=== PATIENT | male | born 1950 | race Caucasian/White ===

== ENCOUNTER 2017-02-18 13:35 | Emergency (ER) | payer MEDICARE ==
[2017-02-18 13:49] VITALS: BP 125/75
--- NOTE | 2017-02-18 14:01 | UC ---
Progress - Progress Note Progress Note: right hand pain and swelling after fall yesterday--has abrasion on face and right forearm---last tetnus 10 years ago---refuses update today, refuses pain med
--- NOTE | 2017-02-18 14:15 | UC ---
UC General HPI - History of Current Complaint Chief Complaint: UCUpperExtremity Stated Complaint: HAND INJURY Time Seen by Provider: 02/18/17 14:06 - Allergy/Home Medications Allergies/Adverse Reactions: Allergies Allergy/AdvReac Type Severity Reaction Status Date / Time No Known Allergies Allergy Verified 04/15/16 12:04 Home Medications: Home Medications Ibuprofen [Advil] 800 mg PO 02/18/17 [History] PMH/Surg Hx/FS Hx/Imm Hx - Surgical History Surgical History: Yes Surgery Procedure, Year, and Place: LEFT [facility]CHIPEXY, [facility] - Social History Alcohol Use: Weekly Alcohol Amount: 1-2/week Substance Use Type: None Smoking Status (MU): Former Smoker Type: Cigarettes Have You Smoked in the Last Year: No When Did the Patient Quit Smoking/Using Tobacco: AGE 26 - Immunization History Most Recent Influenza Vaccination: Never Most Recent Tetanus Shot: Unknown Most Recent Pneumonia Vaccination: Never Physical Exam Vital Signs: Initial Vital Signs Temp 97.9 F 02/18/17 13:46 Pulse 45 02/18/17 13:46 Resp 18 02/18/17 13:46 BP 125/75 02/18/17 13:46 Pulse Ox 98 02/18/17 13:46
--- NOTE | 2017-02-18 14:33 | RAD ---
INDICATION: Soft tissue injury to the right hand after a fall 2 days earlier. COMPARISON: None. TECHNIQUE: 3 views of the right hand were obtained. FINDINGS: There is a minimally displaced fracture involving the proximal pole of the right fifth metacarpal with slight displacement of the proximal fracture fragment anterior and radial relative to the distal shaft of the bone. The remaining visualized bones are intact and appropriately aligned. IMPRESSION: Minimally displaced fracture involving the base of the right fifth metacarpal.
--- NOTE | 2017-02-18 17:58 | UC ---
Gutierrez Lebron Aidan, scribed for Selam Holloway DO on 02/18/17 at 1515 . Hand/Wrist HPI - HPI Summary HPI Summary: 67 y/o male presents to the Urgent Care with a complaint of acute, constant, [id number], right hand swelling that resulted from him falling onto his right hand, arm, shoulder, and head 3 days ago. Associated symptoms include a superficial abrasion to the right forearm and mild (2/10) right hand pain. He took arnica, which slightly alleviated his symptoms. Pt denies any LOC, GOMEZ, dizziness, nausea, vomiting, abnormal confusion, problems with coordination, vision changes, ringing in the ears, fatigue, mood changes, sore throat, fever, chills, CP, or SOB. - History Of Current Complaint Chief Complaint: UCUpperExtremity Stated Complaint: HAND INJURY Time Seen by Provider: 02/18/17 14:06 Hx Obtained From: Patient ?: No Onset/Duration: Sudden Onset, Lasting Days, Still Present Severity Initially: Moderate - hand swelling Severity Currently: Moderate - hand swelling, pain is mild Pain Intensity: 2 Pain Scale Used: 0-10 Numeric Character Of Pain: Throbbing - mild Aggravating Factor(s): Other - unknown Alleviating: Other - arnica Associated Signs And Symptoms: Positive: Swelling, Other - superficial abrasion to the right forearm and mild (2/10) right hand pain Related History: Dominant Hand Right - Allergies/Home Medications Allergies/Adverse Reactions: Allergies Allergy/AdvReac Type Severity Reaction Status Date / Time No Known Allergies Allergy Verified 04/15/16 12:04 Home Medications: Home Medications Ibuprofen [Advil] 800 mg PO 02/18/17 [History] PMH/Surg Hx/FS Hx/Imm Hx Previously Healthy: Yes - Surgical History Surgical History: Yes Surgery Procedure, Year, and Place: LEFT [facility]CHIPEXY, [facility] - Family History Known Family History: Positive: Other - CVA Negative: Hypertension - Social History Occupation: Retired Lives: With Family Alcohol Use: Weekly Alcohol Amount: 1-2/week Substance Use Type: None Smoking Status (MU): Former Smoker Type: Cigarettes Have You Smoked in the Last Year: No When Did the Patient Quit Smoking/Using Tobacco: AGE 26 - Immunization History Most Recent Influenza Vaccination: Never Most Recent Tetanus Shot: Unknown Most Recent Pneumonia Vaccination: Never Review of Systems Constitutional: Negative Skin: Other - superficial abrasion to the right forearm and rt cheak. bruise over medial palm Eyes: Negative ENT: Negative Respiratory: Negative Cardiovascular: Negative Gastrointestinal: Negative Genitourinary: Negative Motor: Negative Neurovascular: Negative Musculoskeletal: Arthralgia - right hand pain, Edema - right hand swelling Neurological: Negative Psychological: Negative All Other Systems Reviewed And Are Negative: Yes Physical Exam Triage Information Reviewed: Yes Appearance: Well-Appearing, No Pain Distress, Well-Nourished Vital Signs: Initial Vital Signs Temp 97.9 F 02/18/17 13:46 Pulse 45 02/18/17 13:46 Resp 18 02/18/17 13:46 BP 125/75 02/18/17 13:46 Pulse Ox 98 02/18/17 13:46 Vital Signs Reviewed: Yes Eyes: Positive: Conjunctiva Clear. Negative: Discharge ENT: Positive: Hearing grossly normal. Negative: Muffled/hoarse voice Neck exam: Normal Neck: Positive: Supple Respiratory: Positive: Lungs clear, Normal breath sounds, No respiratory distress, No accessory muscle use Cardiovascular: Positive: RRR, No Murmur Musculoskeletal Exam: Normal Musculoskeletal: Positive: Edema @ - swelling at the whole right hand, Other: - Swelling of the whole right hand with bruising on the palmar surface over the 5th metacarpal, tenderness to palpation is elicited at the base of the 5th metacarpal Neurological Exam: Normal Neurological: Positive: Alert, Muscle Tone Normal Psychological Exam: Normal Psychological: Positive: Age Appropriate Behavior Skin Exam: Other - minor abrasions on the right forearm and right cheek Diagnostics - Radiology HAND X-RAY Xray Interpretation: Positive (See Comments) - IMPRESSION: Minimally displaced fracture involving the base of the right fifth metacarpal. Radiology Interpretation Completed By: Radiologist Hand/Wrist Course/Dx - Course Course Of Treatment: 67 y/o male presents with right hand swelling S/P breaking a fall with his hand. X-ray indicated displaced fracture of the 5th metacarpal. - Differential Dx/Diagnosis Differential Diagnosis/HQI/PQRI: Contusion, Dislocation, Fracture, Sprain Provider Diagnoses: 5th metacarpal fx, head injury Discharge - Discharge Plan Condition: Stable Disposition: AGAINST MEDICAL ADVICE Patient Education Materials: Head Injury (ED), Splint Care (ED), Boxer Fracture (ED) Referrals: Maria Guadalupe Moreno MD [Primary Care Provider] - If Needed Ross Chandler MD [Medical Doctor] - (follow up in 2-4 days or as per ortho) Additional Instructions: EVEN THOUGH YOU HAVE NO SYMPTOMS AND YOUR NUERO EXAM IN PERFECT, YOU HIT YOUR HEAD IN YOUR FALL. SO, WE ARE RECOMMENDING THAT YOU GET A CT SCAN OF YOUR HEAD TO RULE OUT A SLOW BLEED. PLEASE GO THE ED FOR THE SCAN DIRECTLY. HAVE A GREAT DAY. The documentation as recorded by the Gutierrez correa Aidan accurately reflects the service I personally performed and the decisions made by me, Selam Holloway DO.
== END 2017-02-18 15:51 | disposition left against medical advice (07) ==
LOC: UCEAST 13:35
DX: S62.306A Unspecified fracture of fifth metacarpal bone, right hand, initial encounter for closed fracture (principal); S09.90XA Unspecified injury of head, initial encounter; W19.XXXA Unspecified fall, initial encounter
CPT/HCPCS: 99212; G0463

== ENCOUNTER 2017-02-18 16:01 | Emergency (ER) | payer MEDICARE ==
[2017-02-18 16:10] VITALS: BP 172/92
--- NOTE | 2017-02-18 17:24 | RAD ---
INDICATION: Head injury 2 days earlier. COMPARISON: None. TECHNIQUE: Contiguous axial sections of the brain were obtained from the skull base to the vertex without contrast. FINDINGS: The ventricles, cisterns and sulci are within normal limits. The rodriguez-white matter differentiation is adequately maintained and there is no sulcal effacement. No significant focal abnormality or mass effect is present. There is no evidence for intracranial hemorrhage. No significant focal osseous abnormality is present. The visualized portion of the paranasal sinuses and mastoid air cells appear clear. IMPRESSION: Normal CT of the brain.
--- NOTE | 2017-02-18 22:40 | ED ---
Chicho Lebron Thomas, scribed for Waldemar Crow MD on 02/18/17 at 1645 . Complex/Multi-Sys Presentation - HPI Summary HPI Summary: Pt is a 67 y/o M who presents to ED referred from [facility] for a head CT s/p fall. Pt reports that he fell on (2 days ago) and that he broke the fall with his R hand, striking his R frontal scalp. States that he has never hit his head so hard in his life. Reports he went to [facility] for evaluation of the hand injury today, but upon evaluation they referred him to [facility] ED to receive a CT of the head based upon his age. Denies syncope, LOC, R hand pain. Patient reports he is asymptomatic. - History Of Current Complaint Chief Complaint: EDGeneral Time Seen by Provider: 02/18/17 16:15 Hx Obtained From: Patient Onset/Duration: Resolved Severity Currently: None Severity Initially: Mild Aggravating Factor(s): None Alleviating Factor(s): None Associated Signs And Symptoms: Positive: Other - NEG: LOC, R hand pain. Negative: Syncope - Allergies/Home Medications Allergies/Adverse Reactions: Allergies Allergy/AdvReac Type Severity Reaction Status Date / Time No Known Allergies Allergy Verified 04/15/16 12:04 PMH/Surg Hx/FS Hx/Imm Hx Cardiovascular History: Denies: Hx Hypertension - NO MEDS, SITUATIONAL Sensory History: Reports: Hx Contacts or Glasses - READING GLASSES, Hx Hearing Problem Denies: Hx Hearing Aid Opthamlomology History: Reports: Hx Contacts or Glasses - READING GLASSES Psychiatric History: Reports: Hx Anxiety - SITUATIONAL, Hx Depression - SITUATIONAL - Surgical History Surgery Procedure, Year, and Place: LEFT [place]CHIPEXY, [facility] Hx Anesthesia Reactions: No Infectious Disease History: No Infectious Disease History: Denies: Traveled Outside the [place] in Last 30 Days - Family History Known Family History: Positive: Other - CVA Negative: Hypertension - Social History Alcohol Use: Weekly Alcohol Amount: 1-2/week Substance Use Type: Reports: None Hx Tobacco Use: Yes Smoking Status (MU): Former Smoker Type: Cigarettes Have You Smoked in the Last Year: No Review of Systems Negative: Fever, Chills Negative: Erythema Negative: Sore Throat Negative: Chest Pain Negative: Shortness Of Breath, Cough Negative: Abdominal Pain, Vomiting, Nausea Negative: dysuria, hematuria Positive: Other - NEG: R hand pain. Negative: Myalgia, Edema Negative: Rash Neurological: Other - Negative dizziness and LOC Negative: Syncope All Other Systems Reviewed And Are Negative: Yes Physical Exam - Summary Physical Exam Summary: Constitutional: Well-developed, Well-nourished, Alert. (-) Distressed Skin: Warm, Dry HENT: Normocephalic; Abrasion on head. Eyes: Conjunctiva normal Neck: Musculoskeletal ROM normal neck. (-) JVD, (-) Stridor, (-) Tracheal deviation Cardio: Rhythm regular, rate normal, Heart sounds normal; Intact distal pulses; The pedal pulses are 2+ and symmetric. Radial pulses are 2+ and symmetric. (-) Murmur Pulmonary/Chest wall: Effort normal. (-) Respiratory distress, (-) Wheezes, (-) Rales Abd: Soft, (-) Tenderness, (-) Distension, (-) Guarding, (-) Rebound Musculoskeletal: R arm fracture that is splinted. (-) Edema Lymph: (-) Cervical adenopathy Neuro: Alert, Oriented x3 Psych: Mood and affect Normal Triage Information Reviewed: Yes Vital Signs On Initial Exam: Initial Vitals Temp 97.0 F 02/18/17 16:05 Vital Signs Reviewed: Yes - [place] Coma Scale Coma Scale Total: 15 Diagnostics - Vital Signs Vital Signs Temp Pulse Resp BP Pulse Ox 02/18/17 16:08 97.8 F 51 20 172/92 99 02/18/17 16:05 97.0 F - Laboratory Lab Statement: Any lab studies that have been ordered have been reviewed, and results considered in the medical decision making process. - CT CT Brain CT Interpretation: No Acute Changes - Normal CT of the brain CT Interpretation Completed By: Radiologist Re-Evaluation - Re-Evaluation First Eval Re-Evaluation Time: 17:50 Change: Unchanged Comment: Discussed CT results with patient. Discussed [facility] visit and collected additional history. Discussed discharge plan with patient. Complex Multi-Symp Course/Dx Assessment/Plan: Pt is a 67 y/o M who presents to ED for a brain CT, referred from [facility]. He fell 2 days ago, breaking the fall with his R hand and hitting his R frontal scalp. Denies LOC, syncope and R hand pain at this time. He is asymptomatic with no complaints. Brain CT reveals no acute findings. Pt will be D/C with Dx of closed head injury, abrasion of cheek and hand fracture with a follow up with orthopedics. He understands and agrees. - Diagnoses Provider Diagnoses: Closed head injury, Abrasion of cheek, Hand fracture Discharge - Discharge Plan Condition: Stable Disposition: HOME Patient Education Materials: Hand Fracture (ED), Abrasion (ED) Referrals: Ross Chandler MD [Medical Doctor] - 3 Days The documentation as recorded by the Chicho correa Thomas accurately reflects the service I personally performed and the decisions made by , Waldemar Crow MD.
== END 2017-02-18 18:07 | disposition home or self-care (01) ==
LOC: ED 16:01
DX: S09.90XA Unspecified injury of head, initial encounter (principal); S62.91XA Unspecified fracture of right hand, initial encounter for closed fracture; S00.81XA Abrasion of other part of head, initial encounter; M79.641 Pain in right hand; W19.XXXA Unspecified fall, initial encounter; Y93.9 Activity, unspecified; Y92.9 Unspecified place or not applicable; Y99.9 Unspecified external cause status; Z87.891 Personal history of nicotine dependence
CPT/HCPCS: 70450; 99282

== ENCOUNTER 2017-06-10 22:17 | Observation (INO) | payer MEDICARE ==
[2017-06-10] MEDS ORDERED: NS 0.9% 1000 ML* 1,000 ML IV ONE (23:03)
[2017-06-10] MEDS ORDERED: Tetan/Diph/Pertus SYR(Tdap)* 0.5 ML SYR(BOOSTRIX) use SYR IM ONE (23:03)
[2017-06-10 23:28] LABS: Hematocrit 39 % (42-52); Hemoglobin 13.3 g/dl (14.0-18.0); Mean Corpuscular HGB Conc 34 g/dl (31-36); Mean Corpuscular Hemoglobin 32 pg (27-31); Mean Corpuscular Volume 95 fL (80-94); Mean Platelet Volume 8 um3 (7.4-10.4); Red Blood Count 4.15 10^6/ul (4.0-5.4); Red Cell Distribution Width 14 % (10.5-15); White Blood Count 16.3 10^3/ul (3.5-10.8)
[2017-06-10 23:46] LABS: Albumin 4.4 g/dL (3.2-5.2); BUN/Creatinine Ratio 23.8 (8-20); Calcium 9.3 mg/dL (8.6-10.3); EGFR African American 76.4 (>60); EGFR Non-African American 59.4 (>60); Globulin 3.2 g/dL (2-4); Potassium 3.9 mmol/L (3.5-5.0); Total Bilirubin 0.5 mg/dL (0.2-1.0); Total Protein 7.6 g/dL (6.4-8.9)
[2017-06-10 23:47] LABS: Troponin I 0.01 ng/mL (<0.04)
[2017-06-11] MEDS ORDERED: Iohexol 300* (CONTRAST) 10 ML SDV IV ONE (00:15)
[2017-06-11] MEDS ORDERED: Morphine INJ* 4 MG/ML 1 ML CARPUJECT IV ONE (00:29)
[2017-06-11] MEDS ORDERED: Ondansetron INJ* 2 MG/ML VIAL IV ONE (00:29)
[2017-06-11] MEDS ORDERED: HYDROmorphone INJ* 2 MG/ML CARPUJECT SYRINGE IV PRN (03:42)
[2017-06-11] MEDS ORDERED: Ondansetron INJ* 2 MG/ML VIAL IV PRN (03:42)
[2017-06-11] MEDS ORDERED: Ibuprofen TAB* 600 MG PO PRN (03:42)
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
[2017-06-11] MEDS: oxyCODONE/Acetamin 5/325 MG* TAB PO PRN ×2 (06:36→12:15)
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
[2017-06-11 07:25] VITALS: BP 126/74
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
[2017-06-11 10:00] LABS: Hematocrit 36 % (42-52); Hemoglobin 12.2 g/dl (14.0-18.0); Mean Corpuscular HGB Conc 34 g/dl (31-36); Mean Corpuscular Hemoglobin 32 pg (27-31); Mean Corpuscular Volume 94 fL (80-94); Mean Platelet Volume 8 um3 (7.4-10.4); Red Blood Count 3.86 10^6/ul (4.0-5.4); Red Cell Distribution Width 14 % (10.5-15); White Blood Count 9.2 10^3/ul (3.5-10.8)
[2017-06-11 10:09] LABS: BUN/Creatinine Ratio 27.1 (8-20); EGFR Non-African American 90.2 (>60); Potassium 4.1 mmol/L (3.5-5.0)
[2017-06-11 10:10] LABS: Calcium 8.7 mg/dL (8.6-10.3)
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
== END 2017-06-11 12:00 | disposition home or self-care (01) ==
LOC: ED 22:17 → SSU 06-11 03:42
PROVIDERS: ADMIT Surgery; ATTEND Surgery
DX: S27.0XXA Traumatic pneumothorax, initial encounter (principal); S22.31XA Fracture of one rib, right side, initial encounter for closed fracture; S27.321A Contusion of lung, unilateral, initial encounter; S40.811A Abrasion of right upper arm, initial encounter; S40.812A Abrasion of left upper arm, initial encounter; V28.4XXA Motorcycle driver injured in noncollision transport accident in traffic accident, initial encounter; Y92.410 Unspecified street and highway as the place of occurrence of the external cause; D72.829 Elevated white blood cell count, unspecified; R94.4 Abnormal results of kidney function studies; M54.2 Cervicalgia; R10.9 Unspecified abdominal pain; R00.1 Bradycardia, unspecified; Z23 Encounter for immunization
CPT/HCPCS: 36415; 70450; 71020; 71260; 72125; 74177; 80048; 80053; 80320; 83690; 84484; 85025; 85610; 90471; 90715; 93005; 96361; 96374; 96375; 99291; A9270-GY; G0378; G0480; J2270; J2405; Q9967

== ENCOUNTER 2017-07-15 19:22 | Emergency (ER) | payer MEDICARE ==
[2017-07-15 19:46] VITALS: BP 112/73
--- NOTE | 2017-07-15 19:51 | UC ---
Skin Complaint HPI - HPI Summary HPI Summary: Tick Bite left hip removed about 2 hours ago--unsure duration of attachment - History of Current Complaint Chief Complaint: UCSkin Time Seen by Provider: 07/15/17 19:50 Stated Complaint: TICK BITE Hx Obtained From: Patient Onset/Duration: Sudden Onset Timing: Constant Pain Intensity: 0 Location: Discrete Aggravating Factor(s): Nothing Alleviating Factor(s): Nothing Associated Signs & Symptoms: Positive: Negative Related History: Possible Reaction to: Insect - Allergy/Home Medications Allergies/Adverse Reactions: Allergies Allergy/AdvReac Type Severity Reaction Status Date / Time No Known Allergies Allergy Verified 07/15/17 19:45 Home Medications: Home Medications Arginine [l-Arginine] 07/15/17 [History] Ibuprofen TAB* [Advil TAB*] PRN 07/15/17 [History] Testosterone Booster* 07/15/17 [History] Turmeric (Curcuma Longa) (Bulk [Turmeric] 1 pow XX 07/15/17 [History] Review of Systems Constitutional: Negative Skin: Negative, Other - small area of irratated skin at TICK site Eyes: Negative ENT: Negative Respiratory: Negative Cardiovascular: Negative Gastrointestinal: Negative Genitourinary: Negative Motor: Negative Neurovascular: Negative Musculoskeletal: Negative Neurological: Negative Psychological: Negative Is Patient Immunocompromised?: No All Other Systems Reviewed And Are Negative: Yes PMH/Surg Hx/FS Hx/Imm Hx Previously Healthy: Yes - Surgical History Surgical History: Yes Surgery Procedure, Year, and Place: HERNIA REPAIR, COLONOSCOPY - Family History Known Family History: Positive: Other - CVA Negative: Hypertension - Social History Occupation: Retired Lives: With Family Alcohol Use: Weekly Alcohol Amount: 6 GLASSES/WEEK Substance Use Type: None Smoking Status (MU): Former Smoker Type: Cigarettes Have You Smoked in the Last Year: No When Did the Patient Quit Smoking/Using Tobacco: AGE 26 - Immunization History Most Recent Influenza Vaccination: Never Most Recent Tetanus Shot: Unknown Most Recent Pneumonia Vaccination: Never Physical Exam Triage Information Reviewed: Yes Appearance: Well-Appearing, No Pain Distress, Well-Nourished Vital Signs: Initial Vital Signs Temp 97.9 F 07/15/17 19:41 Pulse 58 07/15/17 19:41 Resp 16 07/15/17 19:41 BP 112/73 07/15/17 19:41 Pulse Ox 96 07/15/17 19:41 Vital Signs Reviewed: Yes Eye Exam: Normal Eyes: Positive: Conjunctiva Clear ENT Exam: Normal ENT: Positive: Normal ENT inspection, Hearing grossly normal, Pharynx normal. Negative: TMs normal, Tonsillar swelling, Tonsillar exudate, Trismus Dental Exam: Normal Neck exam: Normal Neck: Positive: Supple, Nontender Respiratory Exam: Normal Respiratory: Positive: Chest non-tender, No respiratory distress, No accessory muscle use Cardiovascular Exam: Normal Cardiovascular: Positive: RRR, Pulses Normal, Brisk Capillary Refill Musculoskeletal Exam: Normal Musculoskeletal: Positive: Strength Intact, ROM Intact Neurological Exam: Normal Neurological: Positive: Alert, Muscle Tone Normal Psychological Exam: Normal Skin Exam: Normal Course/Dx - Course Course Of Treatment: Doxy times one soap and water wash observe for s/s of LYME follow with PCP - Diagnoses Provider Diagnoses: Tick expose with Lyme PEP Discharge - Discharge Plan Condition: Stable Disposition: HOME Patient Education Materials: Tick Bite (ED) Referrals: Maria Guadalupe Moreno MD [Primary Care Provider] - If Needed
[2017-07-15] MEDS ORDERED: DOXYcycline CAP(*) 100 MG PO ONE (19:58)
== END 2017-07-15 20:05 | disposition home or self-care (01) ==
LOC: UCEAST 19:22
DX: S70.262A Insect bite (nonvenomous), left hip, initial encounter (principal); W57.XXXA Bitten or stung by nonvenomous insect and other nonvenomous arthropods, initial encounter; Y93.9 Activity, unspecified; Y92.9 Unspecified place or not applicable; Z87.891 Personal history of nicotine dependence
CPT/HCPCS: 99212; A9270-GY; G0463

== ENCOUNTER 2018-12-13 20:22 | Emergency (ER) | payer MEDICARE ==
[2018-12-13 20:50] VITALS: BP 125/75
[2018-12-13] MEDS ORDERED: DOXYcycline CAP(*) 100 MG PO ONE ×2 (21:46→22:16)
--- NOTE | 2018-12-13 21:46 | UC ---
Skin Complaint HPI - HPI Summary HPI Summary: 68 y/o male presents to the urgent care c/o tick bite in his left thigh for the past 2 days. pt reports he doesn't know how long the tick was attached since he was hiking for the past 2 days. Tick was engorged when he removed it today. Pain is mild 2/10. Pt w/ Hx of tick bite and has gotten prophylactic treatment in the past. Pt denies fever, GOMEZ, joint pains, abdominal pain, N/V/D. - History of Current Complaint Chief Complaint: UCSkin Time Seen by Provider: 12/13/18 21:45 Stated Complaint: TICK BITE Hx Obtained From: Patient Onset/Duration: Sudden Onset, Lasting Days - 2 days, Resolved - tick removal Skin Exposure Onset/Duration: Days Ago - 2 days Timing: Constant Onset Severity: Mild Current Severity: Mild Pain Intensity: 2 - at touch Pain Scale Used: 0-10 Numeric Location: Discrete - left thigh w/ tick bite Character: Pain, Redness Aggravating Factor(s): Touch Alleviating Factor(s): Other - tick removal Associated Signs & Symptoms: Positive: Rash - tick bite, Tenderness - mild. Negative: Fever, Chills, Drainage Related History: Possible Reaction to: Insect - Allergy/Home Medications Allergies/Adverse Reactions: Allergies Allergy/AdvReac Type Severity Reaction Status Date / Time No Known Allergies Allergy Verified 12/13/18 20:50 Home Medications: Home Medications Jet Fuel (Fat Burner)* 12/13/18 [History] PMH/Surg Hx/FS Hx/Imm Hx Previously Healthy: Yes - Pt denies PMHX - Surgical History Surgical History: Yes Surgery Procedure, Year, and Place: HERNIA REPAIR, COLONOSCOPY - Family History Known Family History: Positive: Other - CVA Negative: Hypertension Family History: Stroke - Social History Occupation: Retired Lives: With Family Alcohol Use: Daily Alcohol Amount: 2 DRINKS/NIGHT Substance Use Type: None Smoking Status (MU): Former Smoker Type: Cigarettes Have You Smoked in the Last Year: No When Did the Patient Quit Smoking/Using Tobacco: AGE 26 - Immunization History Most Recent Influenza Vaccination: Never Most Recent Tetanus Shot: Unknown Most Recent Pneumonia Vaccination: Never Review of Systems All Other Systems Reviewed And Are Negative: Yes Constitutional: Positive: Negative Skin: Positive: Other - tick bite on left thigh Eyes: Positive: Negative ENT: Positive: Negative Respiratory: Positive: Negative Cardiovascular: Positive: Negative Gastrointestinal: Positive: Negative Genitourinary: Positive: Negative Motor: Positive: Negative Neurovascular: Positive: Negative Musculoskeletal: Positive: Negative Neurological: Positive: Negative Psychological: Positive: Negative Is Patient Immunocompromised?: No Physical Exam - Summary Physical Exam Summary: Vital Signs Reviewed: Yes General: well developed, well nourished male sitting in the examining table w/o any apparent distress. Eyes: Positive: Conjunctiva Clear - PERRLA, EOMI ENT: Positive: Normal ENT inspection, Hearing grossly normal, Pharynx normal, TMs normal Neck: Positive: Supple, Nontender, No Lymphadenopathy Respiratory: Positive: Chest nontender, Lungs clear, Normal breath sounds Cardiovascular: Positive: RRR, No Murmur, Pulses Normal Abdomen Description: Positive: Nontender, No Organomegaly, Soft. Negative: CVA Tenderness (R), CVA Tenderness (L) Bowel Sounds: Positive: Present Musculoskeletal: Positive: Strength Intact, ROM Intact, No Edema Neurological Exam: Normal Psychological Exam: Normal Skin: Positive: rashes - Proximal medial aspect of Left thigh with tick bite with surrounding erythema, non tender to palpation. tick no longer present, no swelling or drainage observed. Triage Information Reviewed: Yes Vital Signs: Initial Vital Signs Temp 98.5 F 12/13/18 20:45 Pulse 52 12/13/18 20:45 Resp 16 12/13/18 20:45 BP 125/75 12/13/18 20:45 Pulse Ox 98 12/13/18 20:45 Course/Dx - Course Course Of Treatment: 68 y/o male presents to the urgent care c/o tick bite in his left thigh for the past 2 days. pt reports he doesn't know how long the tick was attached since he was hiking for the past 2 days. Tick was engorged when he removed it today. Pain is mild 2/10. Pt w/ Hx of tick bite and has gotten prophylactic treatment in the past. Pt denies fever, GOMEZ, joint pains, abdominal pain, N/V/D. Hx obtained. Pt w/ Proximal medial aspect of Left thigh with tick bite with surrounding erythema, non tender to palpation. tick no longer present, no swelling or drainage observed on examination. .area cleaned w/ alcohol swab. Antibiotic prophylaxis with Doxycycline given to the patient to prevent lyme Disease.. Pt tolerated well medication. Pt advised to observe the area for the development or Erythema Migrans for upto 30 days following exposure. Advised if he develops fever or erythema Migrans to return to the clinic or PCP for further treatment .Pt understood and agreed with plan of care. - Differential Diagnoses - Skin Complaint Differential Diagnoses: Abscess, Local Allergic Reaction, Tick Born Illness, Other - insect bite, bee sting - Diagnoses Provider Diagnosis: Tick bite of left thigh Discharge - Sign-Out/Discharge Documenting (check all that apply): Patient Departure - d/c home All imaging exams completed and their final reports reviewed: No Studies - Discharge Plan Condition: Stable Disposition: HOME Patient Education Materials: Tick Bite (ED) Referrals: Maria Guadalupe Moreno MD [Primary Care Provider] - 1 Week Brent MENDOZA,Raghav Tyler [Medical Doctor] - If Needed Additional Instructions: 1- Please observe the area for the development or Erythema Migrans for upto 30 days following exposure. Components of the tick saliva can cause transient erythema that should not be confused with Erythema Migrans. If you develop the bull's eye rash, fever, joint pains please return to the urgent care or f/u with your PCP for further management. Apply Bacitracin oint around tick bite to prevent infection 2-Antibiotic prophylaxis with Doxycycline was given to you today to prevent lyme Disease. Lyme serology can be drawn in 2 weeks with your PCP or Dr Oneal who specialized in lyme disease to r/o Lyme disease since there is probability of negative results at early exposure. - Billing Disposition and Condition Condition: STABLE Disposition: Home
== END 2018-12-13 22:20 | disposition home or self-care (01) ==
LOC: UCEAST 20:22
DX: S70.362A Insect bite (nonvenomous), left thigh, initial encounter (principal); R21 Rash and other nonspecific skin eruption; W57.XXXA Bitten or stung by nonvenomous insect and other nonvenomous arthropods, initial encounter; Y93.01 Activity, walking, marching and hiking; Y92.9 Unspecified place or not applicable; Z87.891 Personal history of nicotine dependence
CPT/HCPCS: 99212; A9270-GY; G0463

== ENCOUNTER 2019-01-09 07:01 | Emergency (ER) | payer MEDICARE ==
[2019-01-09 07:14] VITALS: BP 146/81
--- NOTE | 2019-01-09 07:37 | UC ---
Skin Complaint HPI - HPI Summary HPI Summary: PATIENT RUNS ROUTINELY. THINKS THE TICK ATTACHED TO HIM 2 DAYS AGO. REMOVED IT LAST NIGHT BUT THINKS THERE MAY BE SOME TICK PARTS REMAINING. THE AREA IS NOT TENDER OR DRAINING. - History of Current Complaint Chief Complaint: UCSkin Time Seen by Provider: 01/09/19 07:13 Stated Complaint: TICK BITE PERSONAL Hx Obtained From: Patient Onset/Duration: Lasting Days Timing: Constant Onset Severity: Mild Current Severity: Mild Pain Intensity: 0 Pain Scale Used: 0-10 Numeric Location: Discrete - left groin Character: Redness Aggravating Factor(s): Nothing Alleviating Factor(s): Nothing Associated Signs & Symptoms: Positive: Negative - Allergy/Home Medications Allergies/Adverse Reactions: Allergies Allergy/AdvReac Type Severity Reaction Status Date / Time No Known Allergies Allergy Verified 12/13/18 20:50 PMH/Surg Hx/FS Hx/Imm Hx Previously Healthy: Yes - Surgical History Surgical History: Yes Surgery Procedure, Year, and Place: HERNIA REPAIR, COLONOSCOPY - Family History Known Family History: Positive: Other - CVA Negative: Hypertension Family History: Stroke - Social History Alcohol Use: Daily Alcohol Amount: 2 DRINKS/NIGHT Substance Use Type: None Smoking Status (MU): Former Smoker Type: Cigarettes Have You Smoked in the Last Year: No When Did the Patient Quit Smoking/Using Tobacco: AGE 26 - Immunization History Most Recent Influenza Vaccination: Never Most Recent Tetanus Shot: Unknown Most Recent Pneumonia Vaccination: Never Review of Systems All Other Systems Reviewed And Are Negative: Yes Skin: Positive: Other - TICK ATTACHMENT SITE LEFT GROIN Respiratory: Positive: Negative Cardiovascular: Positive: Negative Gastrointestinal: Positive: Negative Musculoskeletal: Positive: Negative Neurological: Positive: Negative Physical Exam Triage Information Reviewed: Yes Appearance: Well-Appearing, No Pain Distress, Well-Nourished Vital Signs: Initial Vital Signs Temp 97.6 F 01/09/19 07:10 Pulse 92 01/09/19 07:10 Resp 16 01/09/19 07:10 BP 146/81 01/09/19 07:10 Pulse Ox 99 01/09/19 07:10 Vital Signs Reviewed: Yes Eyes: Positive: Conjunctiva Clear ENT: Positive: Hearing grossly normal Neck: Positive: Supple Respiratory: Positive: No respiratory distress, No accessory muscle use Cardiovascular: Positive: Pulses Normal Abdomen Description: Positive: Soft Musculoskeletal: Positive: No Edema Neurological: Positive: Alert Psychological: Positive: Age Appropriate Behavior Skin: Positive: Other - TICK ATTACHMENT SITE LEFT GROIN. PINPOINT SIZED RETAINED TICK PARTS. <1CM SURROUNDING ERYTHEMA. NON TENDER Course/Dx - Course Course Of Treatment: COUNSELED PT EXTENSIVELY ON LOW RISK OF MINNIE LYME DISEASE IF TICK NOT ENGORGED. NO INCREASED RISK OF DEVELOPING LYME WITH RETAINED TICK PARTS. NO INDICATION TO REMOVE THEM. 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 KEEP THE AREA CLEAN AND BE VIGILANT OF SX OVER THE NEXT 4-6 WEEKS. PROPHYLACTIC DOXY PROVIDED PT STATES TICK WAS ATTACHED FOR ABOUT 36 HOURS AND HE IS NOT SURE IF IT WAS ENGORGED. ALL QUESTIONS ANSWERED AND PT COMFORTABLE WITH PLAN OF CARE. - Diagnoses Provider Diagnosis: Tick bite of groin Discharge - Sign-Out/Discharge Documenting (check all that apply): Patient Departure All imaging exams completed and their final reports reviewed: No Studies - Discharge Plan Condition: Stable Disposition: HOME Prescriptions: Doxycycline Monohydrate 2 cap PO ONCE #2 cap Patient Education Materials: Tick Bite (ED) Referrals: Maria Guadalupe Moreno MD [Primary Care Provider] - If Needed Additional Instructions: TICK BITE PROPHYLAXIS You received a prescription for 200mg of doxycycline for prophylaxis against Lyme disease. The Infectious Disease Society of [place] (IDSA) does not generally recommend antimicrobial prophylaxis for prevention of Lyme disease after a recognized tick bite. However, in areas that are highly endemic for Lyme disease, a single dose of doxycycline may be offered to adult patients (200 mg) who are not and to children older than 8 years of age (4 mg/kg up to a maximum dose of 200 mg) when all of the following circumstances exist: CRITERIA FOR RECEIVING PROPHYLACTIC TREATMENT FOR LYME DISEASE 1) TICK ATTACHED FOR AT LEAST 36 HRS 2) TICK IS AN ADULT OR [place] DEER TICK 3) YOU LIVE IN AN AREA WHERE LYME DISEASE IS PREVALENT (i.e., [place], [place], [place], , [place] , [place], [place], [place], [place], [place], [place], [place], [place], [place]) 4) YOU HAVE NO CONTRAINDICATION TO THE MEDICATION (DOXYCYCLINE) 5) PROPHYLAXIS IS BEGUN WITHIN 72 HRS OF TICK REMOVAL YOUR CHANCES OF DEVELOPING LYME DISEASE FROM THIS TICK ARE SMALL. HOWEVER, 1 TICK MEANS THERE MAY HAVE BEEN OTHER TICKS OF WHICH YOU WEREN'T AWARE. SO BE VIGILANT OF YOUR SYMPTOMS AND DON'T HESITATE TO GET SEEN AGAIN IF YOU DEVELOP UNEXPLAINED FEVER, HEADACHE, JOINT PAIN, BODY ACHES, RASH OR ANY OTHER CONCERNING SYMPTOMS. Antibiotic treatment following a tick bite is not recommended as a means to prevent anaplasmosis, babesiosis, ehrlichiosis, or [place] spotted fever. There is no evidence this practice is effective, and it may simply delay onset of disease. Instead, persons who experience a tick bite should be alert for symptoms suggestive of tickborne illness and consult a physician if fever, rash, headache or other symptoms of concern develop. - Billing Disposition and Condition Condition: STABLE Disposition: Home
== END 2019-01-09 07:38 | disposition home or self-care (01) ==
LOC: UCEAST 07:01
DX: S30.861A Insect bite (nonvenomous) of abdominal wall, initial encounter (principal); W57.XXXA Bitten or stung by nonvenomous insect and other nonvenomous arthropods, initial encounter; Y92.89 Other specified places as the place of occurrence of the external cause; Z87.891 Personal history of nicotine dependence
CPT/HCPCS: 99212; G0463

== ENCOUNTER 2019-03-06 07:08 | Emergency (ER) | payer MEDICARE ==
[2019-03-06 07:20] VITALS: BP 134/77
[2019-03-06] MEDS ORDERED: Ibuprofen TAB* 400 MG PO ONE (07:29)
--- NOTE | 2019-03-06 07:36 | UC ---
Lower Extremity/Ankle HPI - HPI Summary HPI Summary: 69-year-old male comes in to clinic today with a chief complaint of right foot pain. Patient is a runner. He was running 2 days ago but he doesn't know of any specific injury. He started with pain in the right great toe and the right first MTP joint. Yesterday he worked all day and the pain got worse and the swelling got worse. Now due to the pain is having hard time walking on that foot. Ambulation makes the pain worse. Not ambulating decreases the pain. No history of gout. The swelling is throughout the great toe and includes the MTP. No fevers no chills no known skin break. No drainage. Rest the foot and ankle are nontender. - History of Current Complaint Chief Complaint: UCLowerExtremity Stated Complaint: TOE INJURY Time Seen by Provider: 03/06/19 07:24 Pain Intensity: 8 - Allergies/Home Medications Allergies/Adverse Reactions: Allergies Allergy/AdvReac Type Severity Reaction Status Date / Time No Known Allergies Allergy Verified 03/06/19 07:21 PMH/Surg Hx/FS Hx/Imm Hx Previously Healthy: Yes - Surgical History Surgical History: Yes Surgery Procedure, Year, and Place: HERNIA REPAIR, COLONOSCOPY - Family History Known Family History: Positive: Other - CVA Negative: Hypertension Family History: Stroke - Social History Alcohol Use: Daily Alcohol Amount: 2 DRINKS/NIGHT Substance Use Type: None Smoking Status (MU): Former Smoker Type: Cigarettes Have You Smoked in the Last Year: No When Did the Patient Quit Smoking/Using Tobacco: AGE 26 - Immunization History Most Recent Influenza Vaccination: Never Most Recent Tetanus Shot: Unknown Most Recent Pneumonia Vaccination: Never Review of Systems All Other Systems Reviewed And Are Negative: Yes Constitutional: Positive: Negative Skin: Positive: Other - SEE HPI Eyes: Positive: Negative ENT: Positive: Negative Respiratory: Positive: Negative Cardiovascular: Positive: Negative Gastrointestinal: Positive: Negative Motor: Positive: Negative Neurovascular: Positive: Negative Musculoskeletal: Positive: Other: - SEE HPI Neurological: Positive: Negative Psychological: Positive: Negative Is Patient Immunocompromised?: No Physical Exam Triage Information Reviewed: Yes Appearance: Well-Appearing, No Pain Distress, Well-Nourished Vital Signs: Initial Vital Signs Temp 98.6 F 03/06/19 07:16 Pulse 58 03/06/19 07:16 Resp 16 07/03/19 07:16 BP 134/77 03/06/19 07:16 Pulse Ox 96 03/06/19 07:16 Vital Signs Reviewed: Yes Eye Exam: Normal Eyes: Positive: Conjunctiva Clear Neck: Positive: Supple Respiratory: Positive: No respiratory distress Musculoskeletal: Positive: Other: - Patient's right great toe and first MTP or swollen and tender to palpation. Is also erythematous. It's warm to touch but not hot to touch. No obvious skin break. No drainage. The rest the foot is nontender to palpation. Ankle has full range of motion. Normal capillary refill. Neurological: Positive: Alert Psychological: Positive: Age Appropriate Behavior Skin: Positive: Other - Patient's right great toe and first MTP or swollen and tender to palpation. Is also erythematous. It's warm to touch but not hot to touch. No obvious skin break. No drainage. Normal capillary refill. Lower Extremity Course/Dx - Course Course Of Treatment: Patient Name: DOROTHEA CHOWDHURY Medical Record#: [id number] Ordering Physician: Cesar Mayen MD Acct.#: [id number] : 1950 Age: 69 Sex: M Location: [facility] Exam Date: 03/06/19727 ADM Status: REG ER Order Information: FOOT RIGHT 3+ VWS Accession Number: [id number] CPT: 42821 Indication: RIGHT foot swelling at the great toe and first metatarsal phalangeal joint. Running 4 days ago. Comparison: No relevant prior exams available on the [facility] PACS for comparison. Technique: AP, lateral, and oblique views RIGHT foot. REPORT AND IMPRESSION: #. Normal articular alignment. Negative for fracture or stress reaction. #. Small dorsal accessory ossicle at the level of the second metatarsal base. #. 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 No osseous erosions evident. Negative for soft tissue calcifications. #. Mild soft tissue swelling about the forefoot most prominent at the great toe. Negative for conspicuous foreign body or subcutaneous emphysema. R1F Preliminary Imaging Read R1F <Electronically signed by Colton Mora MD in OV> 03/06/19 0816 I discussed the x-ray report with the patient. No fracture seen there is mild arthritis in the first MTP. At this time were treating for a mechanical injury with a postop shoe and an anti-inflammatory and ice elevation and weightbearing as tolerated. Additionally treating with Keflex in case there is infection in the toe LESS likely. Uric acid is pending. It's not obvious that it is gout however using indomethacin as the nonsteroidal anti-inflammatory for pain. Patient's can be following up sports medicine and if he gets worse he is to get rechecked sooner. - Differential Dx/Diagnosis Provider Diagnosis: Pain of right great toe, Localized swelling of right foot Discharge - Sign-Out/Discharge Documenting (check all that apply): Patient Departure All imaging exams completed and their final reports reviewed: Yes - Discharge Plan Condition: Stable Disposition: HOME Prescriptions: Cephalexin CAP* [Keflex CAP*] 500 mg PO TID #21 cap Indomethacin 50 mg PO TID PRN #21 capsule PRN Reason: Pain Patient Education Materials: Cellulitis (ED), Gout (ED), Swollen Joint (ED) Referrals: Maria Guadalupe Moreno MD [Primary Care Provider] - [facility] [Provider Group] Additional Instructions: FOLLOW UP WITH SPORTS MEDICINE. TAKE THE INDOMETHACIN DIRECTED. INDOMETHACIN IS A NSAID; DO NOT TAKE ADDITIONAL NSAIDS WITH THE INDOMETHACIN. GET RECHECKED SOONER IF YOUR CONDITION WORSENS; PAIN, FEVER, YOU FEEL ILL OR ANY QUESTIONS OR CONCERNS. - Billing Disposition and Condition Condition: STABLE Disposition: Home
[2019-03-06 11:25] LABS: ABS Eosinophils 0.2 10^3/ul (0-0.6); ABS Lymphocytes 0.9 10^3/ul (1.0-4.8); ABS Monocytes 0.6 10^3/ul (0-0.8); Eosinophil % 2.3 %; Hematocrit 40 % (42-52); Hemoglobin 13.5 g/dL (14.0-18.0); Lymphocyte % 13.6 %; Mean Corpuscular HGB Conc 34 g/dL (31-36); Mean Corpuscular Hemoglobin 32 pg (27-31); Mean Corpuscular Volume 96 fL (80-94); Mean Platelet Volume 8.6 fL (7.4-10.4); Platelet Count 268 10^3/uL (150-450); Red Cell Distribution Width 13 % (10-15); White Blood Count 6.8 10^3/uL (3.5-10.8)
[2019-03-06 11:39] LABS: C Reactive Protein 22.28 mg/L (<8.01); Uric Acid 6.6 mg/dL (4.4-7.6)
--- NOTE | 2019-03-07 11:36 | UC ---
- Progress Note Progress Note: CRP elevated. Etiology unclear, infectious vs inflammatory. Notes from [facility] 03/06 reviewed. Call pcp tomorrow to review and arrange follow up, within the next week. Go to the ED if worse or new problems in the meantime. Course/Dx - Diagnoses Provider Diagnoses: Pain of right great toe, Localized swelling of right foot Discharge - Sign-Out/Discharge Documenting (check all that apply): Post-Discharge Follow Up All imaging exams completed and their final reports reviewed: Yes - Discharge Plan Condition: Stable Disposition: HOME Prescriptions: Cephalexin CAP* [Keflex CAP*] 500 mg PO TID #21 cap Indomethacin 50 mg PO TID PRN #21 capsule PRN Reason: Pain Patient Education Materials: Cellulitis (ED), Gout (ED), Swollen Joint (ED) Referrals: [facility] [Provider Group] Maria Guadalupe Moreno MD [Primary Care Provider] - Additional Instructions: FOLLOW UP WITH SPORTS MEDICINE. TAKE THE INDOMETHACIN DIRECTED. INDOMETHACIN IS A NSAID; DO NOT TAKE ADDITIONAL NSAIDS WITH THE INDOMETHACIN. GET RECHECKED SOONER IF YOUR CONDITION WORSENS; PAIN, FEVER, YOU FEEL ILL OR ANY QUESTIONS OR CONCERNS. - Billing Disposition and Condition Condition: STABLE Disposition: Home
== END 2019-03-06 08:34 | disposition home or self-care (01) ==
LOC: UCEAST 07:08
DX: M79.674 Pain in right toe(s) (principal); R22.41 Localized swelling, mass and lump, right lower limb; Z87.891 Personal history of nicotine dependence
CPT/HCPCS: 36415; 84550; 85025; 86140; 99213; A9270-GY; G0463

== ENCOUNTER 2019-04-03 20:42 | Emergency (ER) | payer MEDICARE ==
[2019-04-03 21:06] VITALS: BP 109/65
--- NOTE | 2019-04-03 22:44 | UC ---
Hand/Wrist HPI - HPI Summary HPI Summary: PATIENT WAS RUNNING ON THE TRAILS 4 DAYS AGO WHEN HE TRIPPED ON A TREE ROOT AND FELL. HE CAUGHT HIMSELF WITH HIS RIGHT ARM AND INJURED HIS RIGHT HAND AND SHOULDER. HE ALSO BUMPED HIS CHEEK AND HAS A VERY SMALL ABRASION. NO LOC. NO HEADACHE, NAUSEA OR VISUAL DISTURBANCES. PATIENT WALKED IN WITH NO DIFFICULTY. UP TO DATE TETANUS 06/10/17. - History Of Current Complaint Chief Complaint: UCUpperExtremity Stated Complaint: HAND INJURY Time Seen by Provider: 04/03/19 21:48 Hx Obtained From: Patient, Family/Audio Visual Tech - Onset/Duration: Sudden Onset, Lasting Days, Still Present Severity Initially: Moderate Severity Currently: Moderate Pain Intensity: 4 Pain Scale Used: 0-10 Numeric Character Of Pain: Sharp Aggravating Factor(s): Movement Alleviating Factor(s): Rest, Ice, OTC Meds Associated Signs And Symptoms: Positive: Swelling Related History: Dominant Hand Right - Allergies/Home Medications Allergies/Adverse Reactions: Allergies Allergy/AdvReac Type Severity Reaction Status Date / Time No Known Allergies Allergy Verified 04/03/19 21:07 Home Medications: Home Medications NK [No Home Medications Reported] 04/03/19 [History Confirmed 04/03/19] PMH/Surg Hx/FS Hx/Imm Hx - Additional Past Medical History Additional PMH: GOUT, ARTHRITIS - Surgical History Surgical History: None Surgery Procedure, Year, and Place: HERNIA REPAIR, COLONOSCOPY - Family History Known Family History: Positive: Other - CVA Negative: Hypertension Family History: Stroke - Social History Alcohol Use: Daily Alcohol Amount: 2 DRINKS/NIGHT Substance Use Type: None Smoking Status (MU): Former Smoker Type: Cigarettes Have You Smoked in the Last Year: No When Did the Patient Quit Smoking/Using Tobacco: AGE 26 - Immunization History Most Recent Influenza Vaccination: Never Most Recent Tetanus Shot: Unknown Most Recent Pneumonia Vaccination: Never Review of Systems All Other Systems Reviewed And Are Negative: Yes Constitutional: Positive: Negative Skin: Positive: Negative Respiratory: Positive: Negative Cardiovascular: Positive: Negative Gastrointestinal: Positive: Negative Musculoskeletal: Positive: Arthralgia, Edema Physical Exam Triage Information Reviewed: Yes Appearance: Well-Appearing, No Pain Distress, Well-Nourished Vital Signs: Initial Vital Signs Temp 98.2 F 04/03/19 21:01 Pulse 58 04/03/19 21:01 Resp 12 04/03/19 21:01 BP 109/65 04/03/19 21:01 Pulse Ox 99 04/03/19 21:01 Vital Signs Reviewed: Yes Eyes: Positive: Conjunctiva Clear ENT: Positive: Hearing grossly normal, Pharynx normal, TMs normal Neck: Positive: Supple Respiratory: Positive: No respiratory distress, No accessory muscle use Cardiovascular: Positive: Pulses Normal Abdomen Description: Positive: Soft Musculoskeletal: Positive: ROM Intact, Edema @ - RIGHT HAND, Other: - MILDLY TTP BACK OF RIGHT HAND Neurological: Positive: Alert, Other: - CN II-XII GROSSLY INTACT BILATERALLY. RAPID ALTERNATING MOVEMENTS INTACT. NEG PRONATOR DRIFT. NEG ROMBERG. 5/5 STRENGTH. HEEL TO CAMPOS INTACT BILATERALLY. TANDEM GAIT INTACT. FINGER TO NOSE INTACT. Psychological: Positive: Age Appropriate Behavior Skin: Positive: Other. Negative: Rashes Diagnostics - Radiology RIGHT HAND XRAYS Radiology Interpretation Completed By: ED Physician Summary of Radiographic Findings: NO ACUTE FRACTURE RIGHT SHOULDER XRAYS Radiology Interpretation Completed By: ED Physician Summary of Radiographic Findings: NO FRACTURE Hand/Wrist Course/Dx - Course Course Of Treatment: NO ACUTE FRACTURES SEEN ON X-RAY ON MY INITIAL INTERPRETATION. OLD HEALED 5TH PROXIMAL METACARPAL FX. OFFICIAL RADIOLOGY READ PENDING. PATIENT DECLINED CHEPE WRAP AND SLING TODAY. ADVISED OTC MEDICATION NEEDED FOR DISCOMFORT. REST, ICE AND ELEVATION. FOLLOW-UP WITH ORTHO IF NOT IMPROVING EXPECTED. - Differential Dx/Diagnosis Provider Diagnosis: Sprain and strain of right hand, Sprain of right shoulder Discharge - Sign-Out/Discharge Documenting (check all that apply): Patient Departure All imaging exams completed and their final reports reviewed: No - Discharge Plan Condition: Stable Disposition: HOME Patient Education Materials: Shoulder Sprain (ED), Hand Sprain (ED) Referrals: Maria Guadalupe Moreno MD [Primary Care Provider] - If Needed Amanda Magdaleno MD [Medical Doctor] - If Needed Additional Instructions: XRAYS TODAY NEGATIVE FOR ACUTE FRACTURE OR DISLOCATION ON MY INITIAL INTERPRETATION. WE WILL CALL YOU TOMORROW IF THE RADIOLOGY READ DIFFERS. YOUR SYMPTOMS SHOULD IMPROVE SIGNIFICANTLY OVER THE NEXT 1-2 WEEKS. IF YOU DO NOT IMPROVE EXPECTED FOLLOW-UP WITH YOUR PCP OR ORTHO. YOU MAY BENEFIT FROM REPEAT IMAGING AT THAT TIME. OTC IBUPROFEN OR ALEVE NEEDED FOR DISCOMFORT. REST, ICE, COMPRESS, ELEVATE. IBUPROFEN MAX DOSE: 600MG (3 TABS) EVERY 6 HRS OR 800MG (4 TABS) EVERY 8 HRS OR NAPROXEN MAX DOSE: 440MG (2 TABS) EVERY 12 HRS TYLENOL MAX DOSE: 1000MG (2 EXTRA STRENGTH TABS) EVERY 8 HRS OR 650MG (2 REGULAR TABS) EVERY 6 HRS - Billing Disposition and Condition Condition: STABLE Disposition: Home
--- NOTE | 2019-04-04 08:08 | UC ---
- Progress Note Progress Note: Reviewed imaging including hand x-ray which shows an old fifth metacarpal fracture please note the patient that he has no new fractures, but XR shows an old fifth metacarpal fracture on x-ray - EKG/XRAY/CT XRAY: hand - Patient Name: DOROTHEA CHOWDHURY Medical Record#: [id number] Ordering Physician: Raghav Hidalgo NP Acct.#: [id number] : 1950 Age: 69 Sex: M Location: [facility] Exam Date: 04/03/192102 ADM Status: DEP ER Order Information : HAND - RIGHT MINIMUM 3 VIEWS Accession Number: [id number] CPT: 25913 INDICATION: Right hand injury. TECHNIQUE: 4 views of the right hand were obtained. FINDINGS: The soft tissues are unremarkable. The bone mineralization is within normal limits. There is an old fracture at the base of the fifth metacarpal. No acute fracture is identified. Near-anatomic alignment is maintained. There is only mild osteoarthropathy at the first CMC. IMPRESSION : 1. No acute fracture or traumatic malalignment. 2. Old fracture at the base of the fifth metacarpal. R0 Preliminary Imaging Read R0 <Electronically signed by Jed Hurt MD in OV> 04/04/19 0751 Dictated By: Jed Hurt MD Dictated Date/Time: 0751 Transcribed Date/Time: 04/04/19 0749 Copy to: CC:Maddi Cardenas MD; Raghav Hidalgo NP; Maria Guadalupe Moreno MD Imaging - [facility] Imaging - [facility] Imaging - [facility] [address] [address] ph [phone]) ph [phone]) ph [phone]) This report is only to be considered final once signed by the Provider(s) as displayed in the "< Electronically Signed by >" field (s). Absence of a signature indicates the report is in a draft status and still needs to be finalized. In the event this document was created by someone other than the signing Provider, the individual initiating the document will be listed in the "Entered by:" or "Dictated by:" carey. 1 of 1 Course/Dx - Diagnoses Provider Diagnoses: Sprain and strain of right hand, Sprain of right shoulder Discharge - Sign-Out/Discharge Documenting (check all that apply): Post-Discharge Follow Up All imaging exams completed and their final reports reviewed: Yes - Discharge Plan Condition: Stable Disposition: HOME Patient Education Materials: Shoulder Sprain (ED), Hand Sprain (ED) Referrals: Maria Guadalupe Moreno MD [Primary Care Provider] - If Needed Amanda Magdaleno MD [Medical Doctor] - If Needed Additional Instructions: XRAYS TODAY NEGATIVE FOR ACUTE FRACTURE OR DISLOCATION ON MY INITIAL INTERPRETATION. WE WILL CALL YOU TOMORROW IF THE RADIOLOGY READ DIFFERS. YOUR SYMPTOMS SHOULD IMPROVE SIGNIFICANTLY OVER THE NEXT 1-2 WEEKS. IF YOU DO NOT IMPROVE EXPECTED FOLLOW-UP WITH YOUR PCP OR ORTHO. YOU MAY BENEFIT FROM REPEAT IMAGING AT THAT TIME. OTC IBUPROFEN OR ALEVE NEEDED FOR DISCOMFORT. REST, ICE, COMPRESS, ELEVATE. IBUPROFEN MAX DOSE: 600MG (3 TABS) EVERY 6 HRS OR 800MG (4 TABS) EVERY 8 HRS OR NAPROXEN MAX DOSE: 440MG (2 TABS) EVERY 12 HRS TYLENOL MAX DOSE: 1000MG (2 EXTRA STRENGTH TABS) EVERY 8 HRS OR 650MG (2 REGULAR TABS) EVERY 6 HRS - Billing Disposition and Condition Condition: STABLE Disposition: Home
== END 2019-04-03 22:29 | disposition home or self-care (01) ==
LOC: UCEAST 20:42
DX: S63.91XA Sprain of unspecified part of right wrist and hand, initial encounter (principal); S43.401A Unspecified sprain of right shoulder joint, initial encounter; W18.00XA Striking against unspecified object with subsequent fall, initial encounter; Y92.9 Unspecified place or not applicable; Z87.891 Personal history of nicotine dependence
CPT/HCPCS: 99211; G0463